=== PATIENT | male | born 1960 | race Caucasian/White ===

== ENCOUNTER 2017-01-30 16:28 | Emergency (ER) | payer OTHER ==
[~2017-01-30] VITALS: Ht 177.8 cm; Wt 99.0 kg
[~2017-01-30 16:28] MED LIST: ATOR40TA49 PO; IBUP800T23 PO
[2017-01-30 16:36] VITALS: BP 136/82; TEMP 98.4; O2SAT 98
[2017-01-30] MEDS ORDERED: ATOR20TA15 PO (16:38)
--- NOTE | 2017-01-30 17:50 | PD ---
HPI Chief Complaint: Laceration/Skin Injury Time Seen by Provider: 17:42 Travel History International Travel<30 days: No Contact w/Intl Traveler<30days: No Traveled to known affect area: No History of Present Illness HPI 56-year-old male presents to emergency department with a 1 hour history of a CatFish vikas injury to his left hand. Patient is right-handed. States that after the incident he felt short of breath, a little dizzy, and weak but this only lasted about 15 minutes. Denies fever, chills, chest pain. Last tetanus was less than 6 months ago. He is due for hip replacement within 2 weeks. PFSH Past Medical History Arthritis: Yes High Cholesterol: Yes Diminished Hearing: No Musculoskeletal: Yes (ARTHRITIS) Immunizations Current: Yes Tetanus Vaccination: < 5 Years Influenza Vaccination: No ?: Not Past Surgical History Joint Replacement: No Pacemaker: No Other Surgery: Yes (RIGHT HEEL SX. AND LEFT MASTOID CONTRACTURE SX) Social History Alcohol Use: No Tobacco Use: No Substance Use: No Allergies-Medications (Allergen,Severity, Reaction): Coded Allergies: tramadol (Unverified Allergy, Severe, Nausea/Vomiting, 01/30/17) penicillin G (Unverified Allergy, Unknown, UNKNOWN REACTION, 01/30/17) morphine (Unverified Adverse Reaction, Intermediate, N & V, 01/30/17) Reported Meds & Prescriptions Reported Meds & Active Scripts Active Bactrim DS (Sulfamethoxazole-Trimethoprim) 800-160 Mg Tab 1 Tab PO BID Keflex (Cephalexin) 500 Mg Cap 500 Mg PO Q8H Reported Atorvastatin (Atorvastatin Calcium) 20 Mg Tab 20 Mg PO HS Review of Systems Except as stated in HPI: all other systems reviewed are Neg Physical Exam Narrative GENERAL: Well-nourished, well-developed patient. SKIN: Focused skin assessment warm/dry. Left hand with a small 2 mm laceration to the left dorsal aspect of the 1st MCP. Left pinky with a small superficial laceration near the MCP. Neurovascularly intact HEAD: Normocephalic. EYES: No scleral icterus. No injection or drainage. NECK: Supple, trachea midline. No JVD or lymphadenopathy. CARDIOVASCULAR: Regular rate and rhythm without murmurs, gallops, or rubs. RESPIRATORY: Breath sounds equal bilaterally. No accessory muscle use. GASTROINTESTINAL: Abdomen soft, non-tender, nondistended. MUSCULOSKELETAL: No cyanosis, or edema. BACK: Nontender without obvious deformity. No CVA tenderness. Data Data Last Documented VS Vital Signs Date Time Temp Pulse Resp B/P (MAP) Pulse Ox O2 Delivery O2 Flow Rate FiO2 01/30/17 16:36 98.4 72 18 136/82 (100) 98 Orders Orders Hand, Limited (2vws) (01/30/17 ) Ed Discharge Order (01/30/17 18:23) MDM Medical Decision Making Medical Screen Exam Complete: Yes Emergency Medical Condition: Yes Differential Diagnosis Laceration versus avulsion versus abrasion Narrative Course 56-year-old male presents to emergency department with a one-hour history of a Fish vikas injury. States that the pain is moderate and does not believe that there is still vikas within his skin. States that he was able to remove the vikas himself. Physical exam demonstrates left hand with 2 small superficial lacerations. Unable to palpate any foreign body and no discharge. Neurovascularly intact. Pt has been soaking left hand in warm water and iodine with good relief. States he does not have a true penicillin allergy and just gets GI sickness off of this medication, per pt Bactrim and Keflex for potential infection caused by the Catfish vikas. Diagnosis Primary Impression: Laceration of hand Qualified Codes: S61.412A - Laceration without foreign body of left hand, initial encounter Referrals: Primary Care Physician Additional Instructions: Physical antibiotics as prescribed. Contact her orthopedic doctor regarding her upcoming surgery. Follow-up with the primary care physician within 2 days. Scripts Sulfamethoxazole-Trimethoprim (Bactrim DS) 800-160 Mg Tab 1 TAB PO BID for Infection, #20 TAB 0 Refills Prov: Sherly Palumbo MD 01/30/17 Cephalexin (Keflex) 500 Mg Cap 500 MG PO Q8H for Infection, #30 CAP 0 Refills Prov: Sherly Palumbo MD 01/30/17 Disposition: 01 DISCHARGE HOME Condition: Stable Aurora Jimenez Jan 30, 2017 17:50
[2017-01-30] MEDS ORDERED: CEPH-460 PO (18:15)
[2017-01-30] MEDS ORDERED: BACT800T5 PO (18:15)
--- NOTE | 2017-01-30 18:16 | RADRPT ---
EXAM DATE/TIME: 01/30/2017 17:55 [facility] COMPARISON: No previous studies available for comparison. INDICATIONS : Left hand stung by catfish- 1st and 5th digits. MEDICAL HISTORY : None. SURGICAL HISTORY : None. ENCOUNTER: Initial ACUITY: 1 day PAIN SCORE: 7/10 LOCATION: Left hand FINDINGS: Two view examination of the left hand demonstrates no soft tissue swelling, dislocation, or fracture. The joint spaces are maintained. Bony mineralization is normal. No radiopaque foreign body. CONCLUSION: Unremarkable limited examination of the left hand. Noah Dubon Jr., MD on January 30, 2017 at 18:14 Board Certified Radiologist. This report was verified electronically.
== END 2017-01-30 18:30 | disposition home or self-care (01) ==
LOC: PHEFT 16:28
DX: S61.412A Laceration without foreign body of left hand, initial encounter (principal); E78.00 Pure hypercholesterolemia, unspecified; Z87.39 Personal history of other diseases of the musculoskeletal system and connective tissue; W56.59XA Other contact with other fish, initial encounter
CPT/HCPCS: 73120; 99284